=== PATIENT | female | born 1970 | race Caucasian/White ===

== ENCOUNTER 2021-12-08 05:31 | Outpatient (RCR) | payer BC ==
[~2021-12-08] VITALS: Ht 162.6 cm; Wt 94.9 kg
[~2021-12-08 05:31] MED LIST: ACET-2650 PO; ALPR0.254 PO; ATOR40TA70 PO; BUPR150T28 PO; FLUO40CA PO; TRAZ-227 PO
== END 2021-12-08 10:57 ==
LOC: PREOP 05:31
PROVIDERS: ATTEND Surgery
DX: Z01.812 Encounter for preprocedural laboratory examination (principal); R19.7 Diarrhea, unspecified; R10.13 Epigastric pain; K62.5 Hemorrhage of anus and rectum; Z86.010 Personal history of colon polyps; Z20.822 Contact with and (suspected) exposure to COVID-19
CPT/HCPCS: 87635

== ENCOUNTER 2021-12-12 08:18 | Day surgery (SDC) | payer BC ==
[~2021-12-12] VITALS: Ht 162.6 cm; Wt 94.9 kg
[2021-12-12] MEDS ORDERED: LACTATED RINGERS 1,000 ML IV STA (08:21)
[2021-12-12] MEDS ORDERED: HURRICAINE EXT TUBE (BENZOCAINE) XX PRN (08:30)
[2021-12-12 08:40] VITALS: BP 141/95
[2021-12-12] MEDS ORDERED: proPOfol 200 MG/20 ML (DIPRIVAN) VIAL IV ONE (09:01)
[2021-12-12] MEDS ORDERED: PROPOFOL INJECTION 50 ML IV ONE (09:01)
--- NOTE | 2021-12-12 09:05 | Progress Note-Pre Operative ---
Pre-Operative Progress Note H&P Reviewed The H&P was reviewed, patient examined and no changes noted. Time Seen by Provider: 09:01 Date H&P Reviewed: Dec 12, 2021 Time H&P Reviewed: 09:01 Pre-Operative Diagnosis: Rectal bleed, hx of polyps, diarrhea, severe epiga stric pain CHRIS NUR DO Dec 12, 2021 09:05
[2021-12-12 09:40] VITALS: BP 93/54
[2021-12-12 09:45] VITALS: BP 103/64
[2021-12-12 09:47] VITALS: BP 103/64
--- NOTE | 2021-12-12 09:54 | Progress Note-Post Operative ---
Post-Operative Progess Note Surgeon (s)/Auto Tester (s) Surgeon CHRIS NUR DO Auto Tester: Robe Hale, MSIII Pre-Operative Diagnosis Rectal bleed, hx of polyps, diarrhea, severe epigastric pain Post-Operative Diagnosis Doudenal ulcer Gastric ulcer Hiatal hernia Esophagitis Polyps int hemorrhoids Procedure & Operative Findings Date of Procedure 12/12/21 Procedure Performed/Findings EGD with Bx Colonoscopy with hot bx PROCEDURE NOTE: After informed consent was obtained, the patient was brought to the endoscopy suite, placed in bed in left lateral decubitus position. She was administered IV sedation by the LABORATORY ASSOCIATE who then monitored vitals the entire time, heart rate, blood pressure and pulse ox and the scope was inserted down the mouth through the esophagus into the stomach. Pushed into the stomach and noted what looked like blood flecks and took a picture. Pushed past the antrum into the duodenum and around the 2nd-3rd portion of the duodenum, saw an ulcer. Took a picture and did a biopsy of the ulcer. Pulled back and noted an antral ulcer as well; did a biopsy of the ulcer in the antrum. Then retroflexed the scope and saw a hiatal hernia, took a picture of this and then pulled the scope into the GE junction. Took a picture of the esophagitis and then did a biopsy of the GE junction. Pushed the scope back into the stomach, suctioned all the air out of the stomach. At this point pulled the scope up the esophagus and out the mouth. Switched camera, switched gloves, went down below and started the colonoscopy. Pushed all the way to about 140 cm to get all the way to cecum. On the way in, in the transverse colon saw a small polyp and elected to do a hot biopsy. Once in the cecum took a picture of the appendiceal orifice, noted the ileocecal valve and then slowly withdrew the scope insufflating to look circum- ferentially at the king. Starting in the cecum, up the ascending colon to the hepatic flexure, then down the transverse colon, splenic flexure and into the descending colon. Saw another small flat polyp in the descending colon; took a picture and then did another hot biopsy. Finally, down into the sigmoid and into the rectum; retroflexed in the rectal vault, saw some minimal internal hemorrhoids and took a picture of this. The patient tolerated the procedure and she recovered in the endoscopy suite. Anesthesia Type IV sedation by LABORATORY ASSOCIATE Estimated Blood Loss Estimated blood loss (mL): scant Specimens/Packing Specimens Removed duodenal bx antral bx body of stomach bx GE jxn bx Transverse and Desc colon polyp CHRIS NUR DO Dec 12, 2021 09:54
[2021-12-12] MEDS ORDERED: OMEP40CA6 PO (09:56)
--- NOTE | 2021-12-12 09:56 | Endoscopy Discharge Instruct ---
Endo Procedure/Findings Findings 1.: Gastric Ulcer, Duodenal Ulcer 2.: Hiatal Hernia 3.: Polyp 4.: Internal Hemorrhoids Discharge Instructions - Activity: You might feel a little sleepy until tomorrow. This is due to the me dicine you received to relax you. Until tomorrow, you should: NOT drive a car, operate machinery or power tools. NOT drink any alcoholic beverages. NOT make any important decisions or sign importortant papers. Do not return to work until tomorrow, unless otherwise instructed. Resume previous activities tomorrow. Diet: Start by taking liquids. If you tolerate liquids, advance to solid food. 1.: EGD in 6-8 weeks 2.: Colonscopy in 5 years Notify Physician - If you experience excessive bleeding, unusual abdominal pain, fever, or chest pain, contact your doctor immediately. CHRIS NUR DO Dec 12, 2021 09:56
[2021-12-12 10:10] VITALS: BP 138/91
[2021-12-12 10:37] VITALS: BP 138/91
== END 2021-12-12 10:35 | disposition home or self-care (01) ==
LOC: ENDO 08:18
PROVIDERS: ATTEND Surgery
DX: K26.4 Chronic or unspecified duodenal ulcer with hemorrhage (principal); K25.4 Chronic or unspecified gastric ulcer with hemorrhage; K44.9 Diaphragmatic hernia without obstruction or gangrene; K29.51 Unspecified chronic gastritis with bleeding; K20.91 Esophagitis, unspecified with bleeding; K29.81 Duodenitis with bleeding; K22.70 Barrett's esophagus without dysplasia; D12.3 Benign neoplasm of transverse colon; D12.4 Benign neoplasm of descending colon; K64.8 Other hemorrhoids; K52.9 Noninfective gastroenteritis and colitis, unspecified; E66.9 Obesity, unspecified; Z68.35 Body mass index [BMI] 35.0-35.9, adult; F41.9 Anxiety disorder, unspecified; F32.A Depression, unspecified; F17.210 Nicotine dependence, cigarettes, uncomplicated; Z79.899 Other long term (current) drug therapy
CPT/HCPCS: 84703

== ENCOUNTER 2022-01-19 05:32 | Outpatient (RCR) | payer BC ==
[~2022-01-19] VITALS: Ht 162.5 cm; Wt 90.9 kg
== END 2022-01-19 09:57 | disposition home or self-care (01) ==
LOC: PREOP 05:32
PROVIDERS: ATTEND Surgery
DX: Z01.812 Encounter for preprocedural laboratory examination (principal); K25.9 Gastric ulcer, unspecified as acute or chronic, without hemorrhage or perforation; Z20.822 Contact with and (suspected) exposure to COVID-19
CPT/HCPCS: 87635

== ENCOUNTER → 2022-01-19 | Outpatient (CLI) | payer BC ==
[~2022-01-19] MED LIST changes: +OMEP40CA6 PO; +SUCR1TAB PO
== END ==
LOC: LABNPT 06:17
PROVIDERS: ATTEND Surgery
DX: Z53.9 Procedure and treatment not carried out, unspecified reason (principal)

== ENCOUNTER 2022-01-23 10:21 | Day surgery (SDC) | payer BC ==
[~2022-01-23] VITALS: Ht 162.5 cm; Wt 90.9 kg
[2022-01-23] MEDS ORDERED: LACTATED RINGERS 1,000 ML IV STA (10:26)
[2022-01-23] MEDS ORDERED: LACTATED RINGERS 1,000 ML IV ONE (10:28)
[2022-01-23] MEDS ORDERED: HURRICAINE EXT TUBE (BENZOCAINE) XX PRN (10:30)
[2022-01-23 10:45] VITALS: BP 134/87
--- NOTE | 2022-01-23 10:50 | Progress Note-Pre Operative ---
Pre-Operative Progress Note H&P Reviewed The H&P was reviewed, patient examined and no changes noted. Time Seen by Provider: 10:48 Date H&P Reviewed: Jan 23, 2022 Time H&P Reviewed: 10:48 Pre-Operative Diagnosis: Severe epigastric pain CHRIS NUR DO Jan 23, 2022 10:50
[2022-01-23] MEDS ORDERED: proPOfol 200 MG/20 ML (DIPRIVAN) VIAL IV ONE ×2 (12:34→12:48)
[2022-01-23 12:50] VITALS: BP 129/74
--- NOTE | 2022-01-23 12:51 | Progress Note-Post Operative ---
Post-Operative Progess Note Surgeon (s)/Delivery Assistant (s) Surgeon CHRIS NUR DO Delivery Assistant: none Pre-Operative Diagnosis Severe epigastric pain Post-Operative Diagnosis Esophagitis Duoenal ulcer Hiatal hernia Gastritis Procedure & Operative Findings Date of Procedure 01/23/22 Procedure Performed/Findings EGD with bx PROCEDURE NOTE: After informed consent was obtained, the patient was brought to the endoscopy suite, placed in bed in left lateral decubitus position. She was administered IV sedation by the TOOL SPECIALIST who then monitored vitals the entire time, heart rate, blood pressure and pulse ox and the scope was inserted down the mouth through the esophagus into the stomach. On the way down, noted some mild esophagitis, took a picture, pushed into the stomach, pushed past the antrum into the duodenum. Found an ulcer in the second portion of the duodenum, biopsied it. Pulled back and took a picture of the antrum and then retroflexed the scope. Saw some gastritis and a small hiatal hernia, took a picture of this and biopsied the body of the stomach. Next pulled the scope into the GE junction, took another picture of the hiatal hernia and then did a biopsy of the GE junction. Pushed the scope back into the stomach, suctioned all the air out of the stomach. At this point pulled the scope up the esophagus and out the mouth. The patient tolerated the procedure, and she recovered in endoscopy suite. Anesthesia Type IV sedation by TOOL SPECIALIST Estimated Blood Loss Estimated blood loss (mL): scant Specimens/Packing Specimens Removed duodenal bx body of stomach bx GE jxn bx CHRIS NUR DO Jan 23, 2022 12:51
--- NOTE | 2022-01-23 12:52 | Endoscopy Discharge Instruct ---
Endo Procedure/Findings Findings 1.: Gastritis 2.: Duodenal Ulcer 3.: Hiatal Hernia 4.: Other Findings (esophagitis) Discharge Instructions - Activity: You might feel a little sleepy until tomorrow. This is due to the medicine you received to relax you. Until tomorrow, you should: NOT drive a car, operate machinery or power tools. NOT drink any alcoholic beverages. NOT make any important decisions or sign importortant papers. Do not return to work until tomorrow, unless otherwise instructed. Resume previous activities tomorrow. Diet: Start by taking liquids. If you tolerate liquids, advance to solid food. 1.: EGD in 6-8 weeks Notify Physician - If you experience excessive bleeding, unusual abdominal pain, fever, or chest pain, contact your doctor immediately. CHRIS NUR DO Jan 23, 2022 12:52
[2022-01-23 12:55] VITALS: BP 131/72
[2022-01-23 13:15] VITALS: BP 153/98
--- NOTE | 2022-01-23 13:19 | Anesthesia-General Post-Op ---
MAC Patient Condition Mental Status/LOC: Same as Preop Cardiovascular: Satisfactory Nausea/Vomiting: Absent Respiratory: Satisfactory Pain: Controlled Complications: Absent Post Op Complications Complications None Follow Up Care/Instructions Patient Instructions None needed. Anesthesiology Discharge Order Discharge Order Patient is doing well, no complaints, stable vital signs, no apparent adverse anesthesia problems. No complications reported per nursing. TRISTEN COLLAZO CRNA Jan 23, 2022 13:19
[2022-01-23 13:20] VITALS: BP 153/98
== END 2022-01-23 13:20 | disposition home or self-care (01) ==
LOC: ENDO 10:21
PROVIDERS: ATTEND Surgery
DX: K21.00 Gastro-esophageal reflux disease with esophagitis, without bleeding (principal); K26.9 Duodenal ulcer, unspecified as acute or chronic, without hemorrhage or perforation; K44.9 Diaphragmatic hernia without obstruction or gangrene; K29.80 Duodenitis without bleeding; K29.70 Gastritis, unspecified, without bleeding; F17.210 Nicotine dependence, cigarettes, uncomplicated; E66.9 Obesity, unspecified; Z68.34 Body mass index [BMI] 34.0-34.9, adult
CPT/HCPCS: 84703

== ENCOUNTER → 2022-02-09 | Outpatient (CLI) | payer BC | LOC: LAB 10:37 | PROVIDERS: ATTEND Nurse Practitioner | DX: K52.9 Noninfective gastroenteritis and colitis, unspecified (principal) | CPT/HCPCS: 87015; 87045; 87046; 87324; 87328; 87329; 87449; 87899 ==

== ENCOUNTER → 2022-04-06 | Outpatient (CLI) | payer BC ==
--- NOTE | 2022-04-06 13:24 | Diagnostic Imaging Report ---
PROCEDURE: MRI lumbar spine. TECHNIQUE: Multiplanar, multisequence MRI of the lumbar spine was performed without contrast. DATE: April 06, 2022. COMPARISON: None. INDICATION: 51-year-old female, low back pain. FINDINGS: There is grade 1 anterolisthesis of L5 on S1 which measures 6 mm. There is posterior spinal fusion hardware and disc spacer material at L5-S1. There is associated artifact. There is a mild lumbar levocurvature. There is no evidence of a diffuse marrow infiltrating or replacing process. There is no identified focal concerning bone lesion, compression deformity, or fracture. There are Schmorl's nodes of the lower thoracic spine. There are Modic endplate degenerative related changes which are most notable adjacent to the L3-L4 disc space. There is severe disc height loss at this level. There is moderate to severe disc height loss at L4-L5. The visualized cord and conus medullaris is unremarkable and terminates at the L1 level. T12-L1: There is a small annular tear with broad-based posterior disc protrusion. There is no foraminal narrowing. There is mild spinal stenosis. L1-L2: There is no disc bulge. The facet joints and ligamentum flavum are unremarkable. There is no foraminal narrowing. There is no spinal canal stenosis. L2-L3: There is no disc bulge. The facet joints and ligamentum flavum are unremarkable. There is no foraminal narrowing. There is no spinal canal stenosis. L3-L4: There is mild diffuse disc bulge. The facet joints and ligamentum flavum are unremarkable. There is mild left foraminal narrowing. There is no spinal canal stenosis. L4-L5: There is no disc bulge. The facet joints and ligamentum flavum are unremarkable. There is no high-grade foraminal narrowing. There is no spinal canal stenosis. L5-S1: There is no disc bulge. The facet joints and ligamentum flavum are unremarkable. There is no foraminal narrowing. There is no spinal canal stenosis. IMPRESSION: 1. Postoperative changes at L5-S1 with grade 1 anterolisthesis of L5 on S1. 2. Disc degenerative changes of the thoracolumbar spine as described in detail level by level above. 3. No identified compression deformity or fracture. Dictated by: Dictated on workstation # [id number]
== END ==
LOC: RAD 10:15
PROVIDERS: ATTEND Nurse Practitioner Family
DX: M43.17 Spondylolisthesis, lumbosacral region (principal); M51.25 Other intervertebral disc displacement, thoracolumbar region; M48.05 Spinal stenosis, thoracolumbar region; Z98.1 Arthrodesis status
CPT/HCPCS: 72148

== ENCOUNTER → 2022-05-08 | Outpatient (CLI) | payer BC ==
--- NOTE | 2022-05-08 17:34 | Diagnostic Imaging Report ---
PROCEDURE: CT lumbar spine without contrast. TECHNIQUE: Multiple contiguous axial images were obtained through the lumbar spine without the use of intravenous contrast. Sagittal and coronal reformations were then performed. Auto Exposure Controls were utilized during the CT exam to meet ALARA standards for radiation dose reduction. INDICATION: Low back pain. Prior spinal fusion. Comparison made with an MRI from April 06, 2022. FINDINGS: The patient is status post a previous posterior lumbar interbody fusion of L5-S1. There is a grade 1 anterolisthesis at that level. There is no identifiable screw fracture, but there does not appear to be solid incorporation of the interbody graft, and there is marked irregularity at the L5-S1 endplates suggesting a pseudoarthrosis. No significant osteolysis is evident along the course of the screws. There is no disruption of the vertical stabilization rods. There is a slight degenerative retrolisthesis of L3 on L4. Alignment is otherwise normal. There are vacuum discs at the L3-L4 and L4-L5 levels. There are no findings of an acute fracture. There is no suspicious marrow replacing lesion. There are advanced arthritic changes present at the SI joints with bilateral SI joint sclerosis as well as SI joint erosions. The findings appear compatible with bilateral sacroiliitis. By CT imaging, there is no significant lower thoracic canal stenosis. L1-L2 demonstrates no evidence of significant stenosis. At L2-L3, there appears to be mild narrowing of the central canal due to mild facet hypertrophy and ligamentous thickening as well as some apparent slight disc bulging. At L3-L4, there is advanced disc space height loss. There is endplate spurring and disc bulging. Facet arthropathy is present. There is [id number] narrowing of the central canal. There is mild to moderate right and left foraminal stenosis. At L4-L5, there is more advanced facet arthropathy. There is ossification of the left-sided ligamentum flavum. There is mild narrowing of the central canal, but there appears to be moderate narrowing of the left lateral recess. There is moderate left and mild right foraminal stenosis. At L5-S1, the central canal appears decompressed. Anterolisthesis and endplate spurring at this level result in at least moderate if not severe right-sided foraminal stenosis. There appears to be [id number] narrowing of the left neural foramen. The paraspinal soft tissues are unremarkable. The aorta is normal in caliber. There is mild aortic atherosclerosis. The kidneys are nonobstructed. There has been prior cholecystectomy. IMPRESSION: 1. Previous operative changes of a posterior lumbar interbody fusion of L5-S1. There appears to be failure of incorporation of the interbody graft at that level, and there is irregularity at the L5-S1 disc spaces without evidence of bony fusion suggesting a pseudoarthrosis. 2. Marked sclerosis and erosions at the SI joints compatible with bilateral sacroiliitis. 3. Variable degrees of apparent stenosis within the lumbar spine by CT imaging are detailed above level by level. Dictated by: Dictated on workstation # [id number]
== END ==
LOC: RAD 14:15
PROVIDERS: ATTEND Physician Assistant
DX: M48.061 Spinal stenosis, lumbar region without neurogenic claudication (principal); M43.17 Spondylolisthesis, lumbosacral region; M53.3 Sacrococcygeal disorders, not elsewhere classified; M51.26 Other intervertebral disc displacement, lumbar region; M46.06 Spinal enthesopathy, lumbar region; M47.816 Spondylosis without myelopathy or radiculopathy, lumbar region; I25.10 Atherosclerotic heart disease of native coronary artery without angina pectoris; Z90.49 Acquired absence of other specified parts of digestive tract; G95.89 Other specified diseases of spinal cord
CPT/HCPCS: 72131

== ENCOUNTER → 2023-09-05 | Outpatient (CLI) | payer BC ==
--- NOTE | 2023-09-05 14:37 | Diagnostic Imaging Report ---
CLINICAL INDICATION: Patient has increasing back pain, history of lumbar spine surgery. Patient is going be fitted with a pain stimulator in the future. EXAM: MRI of the lumbar spine performed without IV contrast. Sequences include sagittal T2, sagittal T1, sagittal T2 fat-sat, and axial T2. COMPARISON: MRI of the lumbar spine without contrast dated 04/06/2022. FINDINGS: Again seen are postoperative changes with L5-S1 posterior lumbar interbody fusion L5 laminectomies. There is no significant paraspinal soft tissue abnormality. There is stable Modic type II degenerative signal changes involving the L3-L4 endplates. There is no Modic type I degenerative signal changes seen. There is no acute lumbar spine fracture. There is susceptibility hardware artifact adjacent to the L5-S1 level. There are degenerative spurs involving the lumbar spine. There is no significant paraspinal soft tissue abnormality. There is a 10 mm cyst involving the inferior aspect of the left kidney which is partially seen on the prior study. The visualized portions of the distal thoracic spinal cord, conus medullaris, and cauda equina nerve roots are unremarkable. The conus medullaris tip is seen at the L1-L2 intervertebral level. T12-L1: There is moderate bilateral facet arthropathy. Stable diffuse disk bulge with mild loss of disk space height. There is mild central canal stenosis. There is no significant neuroforaminal narrowing. L1-L2: There is no significant central canal or neuroforaminal narrowing. L2-L3: There is mild bilateral facet arthropathy. There is no significant central canal or neuroforaminal narrowing. L3-L4: Stable diffuse disk bulge with severe loss of disk space height. There is moderate left facet arthropathy and mild right facet arthropathy. There is no significant central canal stenosis. There is minimal left neuroforaminal narrowing and no significant right neuroforaminal narrowing. L4-L5: There is a diffuse disk bulge with moderate to severe loss of disk space height. There is facet arthropathy. There is no significant central canal stenosis. There is mild bilateral neuroforaminal narrowing which is not significantly changed. L5-S1: There is stable at least mild bilateral neuroforaminal narrowing. There is no significant central canal stenosis. IMPRESSION: 1: There is stable L5-S1 posterior lumbar interbody fusion and L5 laminectomies. 2: There is stable multilevel lumbar spine degenerative disease, as described above. 3: There is a simple left renal cyst, which is partially visualized on the prior study. Dictated by: Dictated on workstation # [id number]
== END ==
LOC: RAD 09:21
PROVIDERS: ATTEND Family Medicine
DX: M51.36 Other intervertebral disc degeneration, lumbar region (principal); N28.1 Cyst of kidney, acquired; Z98.1 Arthrodesis status
CPT/HCPCS: 72148